=== PATIENT | male | born 1950 | race Hispanic/Latino ===

== ENCOUNTER → 2018-05-26 | Outpatient (CLI) | payer MEDICARE | END | disposition home or self-care (01) | LOC: RAH 13:14 | PROVIDERS: ATTEND Family Medicine | DX: N13.2 Hydronephrosis with renal and ureteral calculous obstruction (principal) | CPT/HCPCS: 74176 ==

== ENCOUNTER 2018-07-11 12:47 | Emergency (ER) | payer MEDICARE | END 2018-07-11 14:21 | disposition home or self-care (01) | LOC: EDH 12:47 | DX: S13.9XXA Sprain of joints and ligaments of unspecified parts of neck, initial encounter (principal); E11.9 Type 2 diabetes mellitus without complications; I10 Essential (primary) hypertension; M62.838 Other muscle spasm; Z87.442 Personal history of urinary calculi; V59.49XA Driver of pick-up truck or van injured in collision with other motor vehicles in traffic accident, initial encounter; Y93.89 Activity, other specified; Y92.89 Other specified places as the place of occurrence of the external cause; Y99.8 Other external cause status | CPT/HCPCS: 72040 ==

== ENCOUNTER → 2018-08-04 | Outpatient (CLI) | payer MEDICARE | END | disposition home or self-care (01) | LOC: RAH 12:41 | PROVIDERS: ATTEND Family Medicine | DX: N13.2 Hydronephrosis with renal and ureteral calculous obstruction (principal); N40.0 Benign prostatic hyperplasia without lower urinary tract symptoms | CPT/HCPCS: 74176 ==

== ENCOUNTER → 2018-11-08 | Outpatient (CLI) | payer MEDICARE | END | disposition home or self-care (01) | LOC: RAH 13:33 | PROVIDERS: ATTEND Family Medicine | DX: N20.0 Calculus of kidney (principal); N40.0 Benign prostatic hyperplasia without lower urinary tract symptoms; K82.8 Other specified diseases of gallbladder | CPT/HCPCS: 74176 ==

== ENCOUNTER 2021-05-21 18:06 | Inpatient (IN) | payer MEDICARE ==
[~2021-05-21] VITALS: Ht 167.6 cm; Wt 102.8 kg
[2021-05-21 18:58] LABS: BASOPHILS % (AUTO) 0.2 % (0.0-5.0); EOSINOPHILS % (AUTO) 0.2 % (0.0-8.0); HEMATOCRIT 29.4 % (42-54); MEAN CORPUSCULAR HEMOGLOBIN 29.2 pg (27.0-33.0); MEAN CORPUSCULAR HGB CONC 33.7 g/dL (32.0-36.0); MEAN CORPUSCULAR VOLUME 86.7 fL (79-99); MONOCYTES % (AUTO) 8.2 % (3.0-13.0); NEUTROPHILS % (AUTO) 85.7 % (40.0-77.0); PLATELET COUNT (AUTO) 329 K/uL (130-400); RED BLOOD CELL COUNT(AUTO) 3.39 MIL/uL (4.50-6.20); RED CELL DISTRIBUTION WIDTH 17.2 % (11.0-15.5); WHITE BLOOD COUNT (AUTO) 18.2 K/uL (4.8-10.8)
[2021-05-21 19:13] LABS: CREATININE 2.1 mg/dL (0.5-1.5); POTASSIUM 5.3 mmol/L (3.5-5.1)
[2021-05-21 19:17] LABS: BILIRUBIN,TOTAL 0.5 mg/dL (0.2-1.0)
[2021-05-21] MEDS ORDERED: MORPHINE 4 MG SYG IV ONE (19:30)
[2021-05-21] MEDS ORDERED: ONDANSETRON 4MG INJ IVP ONE (19:30)
[2021-05-21 21:21] LABS: APPEARANCE,URINE CLOUDY (CLEAR); BILIRUBIN,URINE SMALL (NEGATIVE); COLOR,URINE YELLOW (YELLOW); GLUCOSE, URINE (UA) NEGATIVE (NEGATIVE); KETONES,URINE 5 mg/dL (NEGATIVE); LEUKOCYTE ESTERASE ,URINE SMALL (NEGATIVE); NITRATE,URINE NEGATIVE (NEGATIVE); OCCULT BLOOD,URINE MODERATE (NEGATIVE); PH,URINE 5.5 (5.0-8.0); PROTEIN,URINE 30 mg/dL (NEGATIVE); UROBILINOGEN,URINE 0.2 mg/dL (0.2-1.0)
[2021-05-21 21:30] LABS: BACTERIA,URINE Few /HPF (None Seen); MUCUS,URINE Rare LPF (None Seen); SQUAMOUS EPITHELIAL CELL,UR Few /HPF (0-2)
[2021-05-21] MEDS ORDERED: ZOSYN 3.375GM +NS 50ML IV ONE (22:00)
[2021-05-21] MEDS ORDERED: 0.9%NACL 1000ML 1,000 ML IV ONE (22:00)
[2021-05-21] MEDS ORDERED: TORS20TA4 PO (22:11)
[2021-05-21] MEDS ORDERED: METF-446 PO (22:11)
[2021-05-21] MEDS ORDERED: PANT40TA54 PO (22:11)
[2021-05-21] MEDS ORDERED: AMOX1TAB16 PO (22:11)
[2021-05-21] MEDS ORDERED: DUTA0.5C37 PO (22:11)
[2021-05-21] MEDS ORDERED: AMLO-142 PO (22:11)
[2021-05-21] MEDS ORDERED: TAMS-1 PO (22:11)
[2021-05-21] MEDS ORDERED: NITROGLYCERIN 0.4 MG SL TAB SL PRN (23:00)
[2021-05-21] MEDS ORDERED: 0.9%NACL 1000ML 1,000 ML IV SCH (23:00)
[2021-05-22] MEDS: 0.9%NACL 1000ML 1,000 ML IV SCH ×3 (00:10→19:00)
[2021-05-22] MEDS: MORPHINE 2 MG SYG IVP PRN ×5 (00:20→18:55)
[2021-05-22] MEDS ORDERED: AZITHROMYCIN 500MG+NS 250ML 250 ML IV ONE (03:23)
[2021-05-22] MEDS: CEFTRIAXONE 1G VIAL IVP SCH (03:26)
[2021-05-22] MEDS: 0.9% NACL 250ML IVPB SCH (03:26)
[2021-05-22] MEDS: AZITHROMYCIN 500MG VIAL IVPB SCH (03:27)
[2021-05-22] MEDS: ONDANSETRON 4MG INJ IV PRN ×2 (03:30→18:55)
[2021-05-22] MEDS ORDERED: ZOSYN 3.375GM+NS 50ML 50 ML IV SCH (05:00)
[2021-05-22 07:48] LABS: BASOPHILS % (AUTO) 0.2 % (0.0-5.0); EOSINOPHILS % (AUTO) 0.3 % (0.0-8.0); HEMATOCRIT 31.6 % (42-54); LYMPHOCYTES % (AUTO) 4.2 % (21.0-51.0); MEAN CORPUSCULAR HEMOGLOBIN 29.2 pg (27.0-33.0); MEAN CORPUSCULAR HGB CONC 33.2 g/dL (32.0-36.0); MONOCYTES % (AUTO) 8.5 % (3.0-13.0); NEUTROPHILS % (AUTO) 86.2 % (40.0-77.0); PLATELET COUNT (AUTO) 334 K/uL (130-400); RED BLOOD CELL COUNT(AUTO) 3.59 MIL/uL (4.50-6.20); RED CELL DISTRIBUTION WIDTH 17.4 % (11.0-15.5); WHITE BLOOD COUNT (AUTO) 21.6 K/uL (4.8-10.8)
[2021-05-22 08:08] LABS: ALBUMIN 2.7 g/dL (3.5-5.0); BILIRUBIN,TOTAL 0.7 mg/dL (0.2-1.0); CREATININE 1.9 mg/dL (0.5-1.5); MAGNESIUM 1.8 mg/dL (1.80-2.40); POTASSIUM 5.4 mmol/L (3.5-5.1); TOTAL PROTEIN, SERUM 7.7 g/dL (6.0-8.3)
[2021-05-22] MEDS: FAMOTIDINE 20MG VIAL IV SCH (08:50)
[2021-05-22 11:50] VITALS: BP 94/57
[2021-05-22 15:30] VITALS: BP 126/67
[2021-05-22 19:51] VITALS: BP 92/62
[2021-05-22] MEDS: INSULIN HUMULIN R 100 UNIT/ML 3ML SQ SCH (20:58)
[2021-05-22 23:42] VITALS: BP 137/69
[2021-05-23] VITALS (16 sets, daily range): BP systolic 98–145; BP diastolic 44–74
[2021-05-23] MEDS: 0.9%NACL 1000ML 1,000 ML IV SCH ×2 (00:18→15:00)
[2021-05-23] MEDS ORDERED: AZITHROMYCIN 500MG+NS 250ML 250 ML IV ONE (03:12)
[2021-05-23] MEDS: CEFTRIAXONE 1G VIAL IVP SCH (03:19)
[2021-05-23] MEDS: AZITHROMYCIN 500MG VIAL IVPB SCH (03:41)
[2021-05-23] MEDS: 0.9% NACL 250ML IVPB SCH (03:41)
[2021-05-23 03:58] LABS: BASOPHILS % (AUTO) 0.2 % (0.0-5.0); EOSINOPHILS % (AUTO) 1.1 % (0.0-8.0); HEMATOCRIT 29.5 % (42-54); LYMPHOCYTES % (AUTO) 7.6 % (21.0-51.0); MEAN CORPUSCULAR HGB CONC 32.9 g/dL (32.0-36.0); MEAN CORPUSCULAR VOLUME 88.3 fL (79-99); MONOCYTES % (AUTO) 8.4 % (3.0-13.0); NEUTROPHILS % (AUTO) 81.8 % (40.0-77.0); PLATELET COUNT (AUTO) 346 K/uL (130-400); RED BLOOD CELL COUNT(AUTO) 3.34 MIL/uL (4.50-6.20); RED CELL DISTRIBUTION WIDTH 17.7 % (11.0-15.5)
[2021-05-23 04:15] LABS: ALBUMIN 2.3 g/dL (3.5-5.0); BILIRUBIN,TOTAL 0.5 mg/dL (0.2-1.0); CREATININE 2.1 mg/dL (0.5-1.5)
[2021-05-23] MEDS: MORPHINE 2 MG SYG IVP PRN ×2 (04:29→09:41)
[2021-05-23] MEDS ORDERED: 0.9% NACL 500ML IV.SOLN 500 ML IV ONE (05:30)
[2021-05-23] MEDS: INSULIN HUMULIN R 100 UNIT/ML 3ML SQ SCH ×4 (06:14→21:00)
[2021-05-23] MEDS ORDERED: 0.9%NACL 1000ML 1,000 ML IV SCH (07:00)
[2021-05-23] MEDS ORDERED: ZOSYN 3.375GM +NS 50ML IV SCH (07:00)
[2021-05-23] MEDS ORDERED: ZOSYN 3.375GM+NS 50ML 50 ML ONE (07:03)
[2021-05-23] MEDS: ZOSYN 3.375GM+NS 50ML 50 ML IV SCH ×2 (07:49→15:29)
[2021-05-23] MEDS: FAMOTIDINE 20MG VIAL IV SCH (09:41)
[2021-05-23] MEDS ORDERED: HYDROMORPHONE 0.5 MG SYG (0.5MG/0.5ML) IVP PRN (12:00)
[2021-05-23] MEDS ORDERED: HYDROMORPHONE 1 MG INJ IVP PRN (12:00)
[2021-05-23] MEDS ORDERED: LIDOCAINE PF 100MG/5ML (2%) SYRINGE 5ML ONE (17:18)
[2021-05-23] MEDS ORDERED: ONDANSETRON 4MG INJ ONE ×2 (17:18→19:08)
[2021-05-23] MEDS ORDERED: PROPOFOL 10 MG/ML 20ML VIAL IV ONE (17:18)
[2021-05-23] MEDS ORDERED: FENTANYL CITRATE PF 50 MCG/1 ML 2ML VIAL ONE ×3 (17:19→20:35)
[2021-05-23] MEDS ORDERED: ROCURONIUM 10MG/1ML SYR 10 MG/ML ML ONE (17:19)
[2021-05-23] MEDS ORDERED: BUPIVACAINE/PF 0.25% 30ML VIAL IJ ONE (19:00)
[2021-05-23] MEDS ORDERED: LIDOCAINE 1%-EPI 1:100,000 20 ML VIAL IJ ONE (19:00)
[2021-05-23] MEDS ORDERED: MIDAZOLAM HCL 1 MG/ML 2ML VIAL ONE (19:08)
[2021-05-23] MEDS ORDERED: KETAMINE 50MG/ML SYRINGE 50 MG/ML DISP.SYRIN IV ONE (19:12)
[2021-05-23] MEDS ORDERED: CEFAZOLIN SODIUM 1 GM VIAL ONE (19:47)
[2021-05-23] MEDS ORDERED: GLYCOPYRROLATE 1 MG/5 ML SYRINGE ONE (20:34)
[2021-05-23] MEDS ORDERED: NEOSTIGMINE 5MG/5ML SYR IV ONE (20:34)
[2021-05-23] MEDS ORDERED: SODIUM BICARB 50MEQ 50ML VIAL 150 ML ONE (21:22)
[2021-05-24] VITALS (21 sets, daily range): BP systolic 108–165; BP diastolic 57–77
[2021-05-24] MEDS ORDERED: OXYCODONE/ACETAMIN 5/325MG TAB PO PRN
[2021-05-24] MEDS ORDERED: HYDROMORPHONE 1 MG INJ IVP PRN
[2021-05-24] MEDS: ZOSYN 3.375GM+NS 50ML 50 ML IV SCH ×4 (00:04→23:12)
[2021-05-24] MEDS ORDERED: SODIUM BICARB 8.4% 50ML SYRINGE IVP SCH (00:30)
[2021-05-24] MEDS: 0.9%NACL 1000ML 1,000 ML IV SCH (01:12)
[2021-05-24] MEDS ORDERED: SODIUM BICARB 50MEQ 50ML VIAL 100 ML ONE (01:18)
[2021-05-24 04:06] LABS: HEMATOCRIT 27.7 % (42-54); MEAN CORPUSCULAR HEMOGLOBIN 28.5 pg (27.0-33.0); MEAN CORPUSCULAR HGB CONC 32.1 g/dL (32.0-36.0); MEAN CORPUSCULAR VOLUME 88.8 fL (79-99); RED BLOOD CELL COUNT(AUTO) 3.12 MIL/uL (4.50-6.20); RED CELL DISTRIBUTION WIDTH 17.9 % (11.0-15.5); WHITE BLOOD COUNT (AUTO) 15.1 K/uL (4.8-10.8)
[2021-05-24 04:29] LABS: ALBUMIN 1.8 g/dL (3.5-5.0); BILIRUBIN,TOTAL 0.5 mg/dL (0.2-1.0); CREATININE 2.5 mg/dL (0.5-1.5); POTASSIUM 4.7 mmol/L (3.5-5.1); TOTAL PROTEIN, SERUM 5.9 g/dL (6.0-8.3)
[2021-05-24] MEDS ORDERED: METRONIDAZOLE 500 MG TABLET ONE (05:47)
[2021-05-24] MEDS: METRONIDAZOLE 500MG/100ML BAG 100 ML IVPB SCH ×2 (05:50→14:00)
[2021-05-24] MEDS: INSULIN HUMULIN R 100 UNIT/ML 3ML SQ SCH ×4 (06:28→21:00)
[2021-05-24] MEDS ORDERED: SODIUM BICARB 50MEQ 50ML VIAL IV SCH (06:54)
[2021-05-24] MEDS: FAMOTIDINE 20MG VIAL IV SCH (08:03)
[2021-05-24] MEDS ORDERED: 0.9%NACL 1000ML 1,000 ML IV SCH (12:30)
[2021-05-24 13:24] LABS: APPEARANCE,URINE Turbid (CLEAR); BILIRUBIN,URINE Negative (NEGATIVE); COLOR,URINE Yellow (YELLOW); GLUCOSE, URINE (UA) Negative (NEGATIVE); KETONES,URINE Trace mg/dL (NEGATIVE); LEUKOCYTE ESTERASE ,URINE Moderate (NEGATIVE); NITRATE,URINE Negative (NEGATIVE); OCCULT BLOOD,URINE Large (NEGATIVE); PH,URINE 5.5 (5.0-8.0); PROTEIN,URINE POS 2+ mg/dL (NEGATIVE)
[2021-05-24 13:29] LABS: CREATININE,URINE RANDOM 77 mg/dL (30-135); SODIUM,URINE RANDOM 64 mmol/l (40-220)
[2021-05-24 13:58] LABS: BACTERIA,URINE Few /HPF (None Seen)
[2021-05-24 13:59] LABS: SQUAMOUS EPITHELIAL CELL,UR 0-2 /HPF (0-2)
[2021-05-24 14:03] LABS: OTHER CRYSTALS,URINE CHOLESTEROL 1+ /LPF (None Seen)
[2021-05-24] MEDS: METRONIDAZOLE 500 MG TABLET PO SCH ×2 (15:17→23:12)
[2021-05-24] MEDS ORDERED: ALPRAZOLAM 0.5 MG TABLET PO SCH (18:30)
[2021-05-25 04:05] VITALS: BP 130/60
[2021-05-25 04:51] LABS: BASOPHILS % (AUTO) 0.1 % (0.0-5.0); EOSINOPHILS % (AUTO) 2.3 % (0.0-8.0); HEMATOCRIT 27.2 % (42-54); LYMPHOCYTES % (AUTO) 11.9 % (21.0-51.0); MEAN CORPUSCULAR HEMOGLOBIN 28.6 pg (27.0-33.0); MEAN CORPUSCULAR HGB CONC 31.6 g/dL (32.0-36.0); MEAN CORPUSCULAR VOLUME 90.4 fL (79-99); NEUTROPHILS % (AUTO) 77.9 % (40.0-77.0); PLATELET COUNT (AUTO) 332 K/uL (130-400); RED BLOOD CELL COUNT(AUTO) 3.01 MIL/uL (4.50-6.20); RED CELL DISTRIBUTION WIDTH 17.9 % (11.0-15.5); WHITE BLOOD COUNT (AUTO) 14.1 K/uL (4.8-10.8)
[2021-05-25 05:13] LABS: ALBUMIN 1.8 g/dL (3.5-5.0); BILIRUBIN,TOTAL 0.3 mg/dL (0.2-1.0); CREATININE 1.9 mg/dL (0.5-1.5); MAGNESIUM 1.9 mg/dL (1.80-2.40); PHOSPHORUS 3.8 mg/dL (2.5-4.9); POTASSIUM 3.7 mmol/L (3.5-5.1); TOTAL PROTEIN, SERUM 5.9 g/dL (6.0-8.3)
[2021-05-25] MEDS: ZOSYN 3.375GM+NS 50ML 50 ML IV SCH ×3 (07:09→22:21)
[2021-05-25] MEDS: METRONIDAZOLE 500 MG TABLET PO SCH ×3 (07:09→22:22)
[2021-05-25] MEDS: INSULIN HUMULIN R 100 UNIT/ML 3ML SQ SCH ×4 (07:24→22:46)
[2021-05-25 08:00] VITALS: BP 141/70
[2021-05-25] MEDS: Vitamin B Complex/Vit C/Folic Acid PO SCH ×2 (10:04→10:10)
[2021-05-25] MEDS: FAMOTIDINE 20MG VIAL IV SCH ×2 (10:04→10:10)
[2021-05-25] MEDS: ENOXAPARIN SODIUM 30 MG/0.3 ML SQ SCH (10:11)
[2021-05-25 12:00] VITALS: BP 129/68
[2021-05-25 16:00] VITALS: BP 139/75
[2021-05-25 20:19] VITALS: BP 143/73
[2021-05-25 23:47] VITALS: BP 138/58
[2021-05-26 04:10] VITALS: BP 147/75
[2021-05-26 04:56] LABS: HEMATOCRIT 27.7 % (42-54); MEAN CORPUSCULAR HEMOGLOBIN 28.8 pg (27.0-33.0); MEAN CORPUSCULAR HGB CONC 32.5 g/dL (32.0-36.0); MEAN CORPUSCULAR VOLUME 88.8 fL (79-99); PLATELET COUNT (AUTO) 361 K/uL (130-400); RED BLOOD CELL COUNT(AUTO) 3.12 MIL/uL (4.50-6.20); RED CELL DISTRIBUTION WIDTH 17.5 % (11.0-15.5); WHITE BLOOD COUNT (AUTO) 10.2 K/uL (4.8-10.8)
[2021-05-26 05:20] LABS: CREATININE 1.6 mg/dL (0.5-1.5); POTASSIUM 3.6 mmol/L (3.5-5.1)
[2021-05-26 05:40] LABS: BASOPHILS % (MANUAL) 1 % (0-2); EOSINOPHILS % (MANUAL) 4 % (1-6); LYMPHOCYTES % (MANUAL) 24 % (22-44); MONOCYTES % (MANUAL) 5 % (2-9); SEGMENTED NEUTROPHILS % 66 % (40-70)
[2021-05-26 05:44] LABS: MAN.DIFF COMMENT-IMPRESSION MANUAL DIFFERENTIAL
[2021-05-26 05:49] LABS: PLATELET MORPHOLOGY COMMENT ADEQUATE
[2021-05-26] MEDS: METRONIDAZOLE 500 MG TABLET PO SCH ×2 (06:33→13:27)
[2021-05-26] MEDS: ZOSYN 3.375GM+NS 50ML 50 ML IV SCH ×2 (06:33→17:23)
[2021-05-26] MEDS: INSULIN HUMULIN R 100 UNIT/ML 3ML SQ SCH ×3 (06:38→17:26)
[2021-05-26 07:52] LABS: ABG HCO3 21.4 mmol/L (21.0-28.0); ABG OXYGEN SATURATION 95.5 % (95.0-99.0); ABG PCO2 36 mmHg (35-48)
[2021-05-26 07:53] LABS: ABG BASE EXCESS -5.2 mmol/L (-2.0-3.0); ABG HCO3 19.3 mmol/L (21.0-28.0); ABG OXYGEN SATURATION 97.3 % (95.0-99.0); ABG PCO2 35 mmHg (35-48)
[2021-05-26 07:53] LABS: ABG BASE EXCESS -12.9 mmol/L (-2.0-3.0); ABG HCO3 16.1 mmol/L (21.0-28.0); ABG OXYGEN SATURATION 95.4 % (95.0-99.0); ABG PCO2 51 mmHg (35-48)
[2021-05-26 07:53] LABS: ABG BASE EXCESS -8.5 mmol/L (-2.0-3.0); ABG HCO3 17.8 mmol/L (21.0-28.0); ABG OXYGEN SATURATION 94.1 % (95.0-99.0); ABG PCO2 40 mmHg (35-48)
[2021-05-26 08:00] VITALS: BP 149/76
[2021-05-26] MEDS: ENOXAPARIN SODIUM 30 MG/0.3 ML SQ SCH (09:53)
[2021-05-26 12:00] VITALS: BP 129/63
[2021-05-26 16:00] VITALS: BP 124/71
[2021-05-26] MEDS ORDERED: AMOX-429 PO (19:18)
[2021-05-26] MEDS ORDERED: ACET1TAB25 PO (19:18)
== END 2021-05-26 20:42 | disposition home or self-care (01) | DRG 853 ==
LOC: EDH 18:06 → EDHIP 22:46 → 4AH 05-22 11:11 → 2CH 05-23 21:52 → 3BH 05-24 17:42
PROVIDERS: ADMIT Internal Medicine; ATTEND Internal Medicine
PROC: 5A09357 Assistance with Respiratory Ventilation, Less than 24 Consecutive Hours, Continuous Positive Airway Pressure (ICD-10-PCS; 2021-05-23)
PROC: 0FT44ZZ Resection of Gallbladder, Percutaneous Endoscopic Approach (ICD-10-PCS; principal; 2021-05-23 19:39)
DX: A41.9 Sepsis, unspecified organism (principal); J18.9 Pneumonia, unspecified organism; K80.00 Calculus of gallbladder with acute cholecystitis without obstruction; N39.0 Urinary tract infection, site not specified; N17.9 Acute kidney failure, unspecified; E87.0 Hyperosmolality and hypernatremia; R18.8 Other ascites; E87.5 Hyperkalemia; K76.0 Fatty (change of) liver, not elsewhere classified; R16.0 Hepatomegaly, not elsewhere classified; N18.9 Chronic kidney disease, unspecified; Z68.34 Body mass index [BMI] 34.0-34.9, adult; E66.9 Obesity, unspecified; Z20.822 Contact with and (suspected) exposure to COVID-19; K82.A1 Gangrene of gallbladder in cholecystitis; K82.8 Other specified diseases of gallbladder; E11.51 Type 2 diabetes mellitus with diabetic peripheral angiopathy without gangrene; D64.9 Anemia, unspecified; I12.9 Hypertensive chronic kidney disease with stage 1 through stage 4 chronic kidney disease, or unspecified chronic kidney disease; E11.22 Type 2 diabetes mellitus with diabetic chronic kidney disease; G47.00 Insomnia, unspecified; E78.5 Hyperlipidemia, unspecified; K59.00 Constipation, unspecified; Z91.19 Patient's noncompliance with other medical treatment and regimen; Z83.3 Family history of diabetes mellitus; Z82.49 Family history of ischemic heart disease and other diseases of the circulatory system
CPT/HCPCS: 36415; 36600; 71045; 76705; 80048; 80053; 80061; 81001; 82150; 82435; 82570; 82803; 82947; 82948; 83605; 83690; 83735; 83935; 84100; 84132; 84145; 84295; 84300; 84484; 85018; 85025; 85027; 87040; 87088; 87635; 88304; 93005; 94660; 97039; G0378; J0456; J0690; J0696; J1170; J1650; J1815; J2001; J2250; J2270; J2405; J2543; J2704; J2710; J3010; J3490; J7030

== ENCOUNTER 2021-05-27 14:48 | Emergency (ER) | payer MEDICARE ==
[~2021-05-27] VITALS: Ht 167.6 cm; Wt 97.1 kg
[~2021-05-27 14:48] MED LIST: ACET1TAB25 PO; AMLO-142 PO; AMOX-429 PO; DUTA0.5C37 PO; METF-446 PO; PANT40TA54 PO; TAMS-1 PO; TORS20TA4 PO
[2021-05-27 15:40] VITALS: BP 155/67
== END 2021-05-27 17:42 | disposition home or self-care (01) ==
LOC: EDH 14:48
DX: T85.698A Other mechanical complication of other specified internal prosthetic devices, implants and grafts, initial encounter (principal); E11.9 Type 2 diabetes mellitus without complications; E78.00 Pure hypercholesterolemia, unspecified; I10 Essential (primary) hypertension; Z79.84 Long term (current) use of oral hypoglycemic drugs; Z79.899 Other long term (current) drug therapy; Z90.49 Acquired absence of other specified parts of digestive tract
CPT/HCPCS: 99281; 99282